=== PATIENT | male | born 1985 | race Asian ===

== ENCOUNTER → 2020-01-07 | Outpatient (CLI) | payer OTHER | LOC: COL.RAD 10:49 | DX: Z96.9 Presence of functional implant, unspecified (principal); Z98.890 Other specified postprocedural states ==

== ENCOUNTER → 2020-04-10 | Outpatient (CLI) | payer OTHER | LOC: COL.RAD 11:38 | DX: Z96.9 Presence of functional implant, unspecified (principal) ==